=== PATIENT | male | born 1930 | race Caucasian/White ===

== ENCOUNTER 2017-01-20 12:57 | Inpatient (IN) ==
[2017-01-20] MEDS ORDERED: NS 1,000 ML IV ONE (13:15)
[2017-01-20] MEDS: SALINE FLUSH 10ml SYRINGE IVF PRN ×2 (13:56→19:51)
--- NOTE | 2017-01-20 15:04 | Emergency Department Report ---
General Adult HPI - General Chief complaint: Weakness Stated complaint: Edema Time Seen by Provider: 01/20/17 13:00 - History of Present Illness HPI narrative: 86-year-old gentleman brought from [place], by EMS for decreased responsiveness. Patient was seen here 10 days ago for confusion, diagnosed with sepsis and transferred to [place]. He returned home 3 days ago and was admitted [place] 2 days ago. Today when they checked time he had low O2 sats, was not answering questions or following commands. They therefore contacted EMS to bring him to the ED. On entering ED he is very sleepy, takes time answering questions, seems to have difficulty with focus. Family is concerned that he may have had a CVA. 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 This was a very slow growing tumor and did not recur until this last year. Chemotherapy was started, but abandoned has not been given for over 6 weeks. At this time patient denies any pain. He has one daughter at bedside. There is a DO NOT RESUSCITATE order signed by his sister who is not present currently. - Related Data Home Medications Medication Instructions Recorded Confirmed Acyclovir [Zovirax] 800 mg PO DAILY #0 07/20/12 01/20/17 Allopurinol 300 mg PO DAILY #0 07/20/12 01/20/17 Finasteride [Proscar] 5 mg PO DAILY #0 07/20/12 01/20/17 Levothyroxine Sodium [Synthroid] 88 mcg PO DAILY #0 07/20/12 01/20/17 Docusate Sodium [Colace] 100 mg PO BID #0 cap 11/20/15 01/20/17 Sennosides [Senna] 8.6 mg PO BID PRN #0 tab 11/20/15 01/20/17 Acetaminophen 650 mg PO Q4H PRN 01/20/17 01/20/17 Ciprofloxacin [Cipro] 500 mg PO BID 01/20/17 01/20/17 Furosemide [Lasix] 40 mg PO DAILY 01/20/17 01/20/17 Megestrol [Megace] 40 mg PO QID 01/20/17 01/20/17 Metoprolol Tartrate 37.5 mg PO BID 01/20/17 01/20/17 PredniSONE [Deltasone] 20 mg PO DAILY 01/20/17 01/20/17 Tamsulosin [Flomax] 0.8 mg PO DAILY 01/20/17 01/20/17 Allergies Allergy/AdvReac Type Severity Reaction Status Date / Time clindamycin Allergy Unknown Verified 01/20/17 13:34 Penicillins Allergy Unknown Verified 01/20/17 13:34 Review of Systems Limitations: ROS unobtainable due to patient's medical condition [facility] Patient Stated Medical History Diabetes Mellitus Type 2 HX Sepsis Yes History of lymphoma Surgical History: Port Placement, removal of spleen - Social History Smoking status: Never smoker Substance use type: does not use Alcohol intake frequency: does not drink Physical Exam - Limitations Limitations: altered mental status - General General appearance: lethargic - Normal Exams: Head:: Normocephalic without trauma Eyes:: Pupils are PERRLA w/ EOMI, No scleral icterus, irritation, or foreign bodies noted Abdomen:: Bowel sounds positive, soft, non-tender, non-distended, no hepatosplenomegaly, masses or bruits noted - Respiratory Respiratory exam: Present: crackles (mild basis.) - Cardiovascular Cardiovascular exam: Present: tachycardia, irregular rhythm. Absent: systolic murmur, diastolic murmur - Abdominal Exam Abdominal exam: Present: soft, normal bowel sounds. Absent: tenderness, guarding, rebound - Extremities Exam Extremities exam: Present: pedal edema. Absent: joint swelling, calf tenderness - Skin Skin exam: Present: other (significant bruising throughout arms.) - Neurological Exam Neurological exam: Present: oriented X3, CN II-XII intact. Absent: alert Course Vital Signs Temperature 96.3 F L 01/20/17 13:00 Pulse Rate 108 H 01/20/17 13:00 Respiratory Rate 16 01/20/17 13:00 Blood Pressure 124/61 01/20/17 13:00 Pulse Oximetry 97 01/20/17 13:00 Temperature 96.3 F L 01/20/17 13:00 Pulse Rate 138 H 01/20/17 17:17 Respiratory Rate 18 01/20/17 16:09 Blood Pressure 107/56 01/20/17 17:17 Pulse Oximetry 97 01/20/17 17:17 Medical Decision Making - [facility] Narrative Medical decision making narrative: Patient brought in by EMS from [place]. He had limited responsiveness when he arrived. He was very fatigued and would fall asleep when we were trying to speak with him. No family was initially present. Labs were ordered to evaluate the patient white count returned at 15.1 platelet count at 9 INR 1.42 potassium 2.9 by mouth and 40 creatinine 1.2 total bili 2.2 with elevated alkaline phosphatase at 128. We did check creatinine kinase which was 25. Troponin returned at 0.77, elevated. BNP also returned at 23,000. Plasma lactate 3.1. CT abdomen obtained which showed metastatic masses in liver and extensive left periaortic retroperitoneal adenopathy. Also left hydronephrosis with adenopathy encasing renal pelvis and proximal ureter. Moderate pleural effusions are seen in both CT of abdomen and on chest x-ray. Meeting was held with family to discuss this. The patient and family are in agreement that they would like to stay in [place]. They understand that staying in [place] means he would have to go in hospice as we do not have the aggressive abilities that they would at [place] or [facility]. Hospitalist was consulted, however patient is on skilled care at [place] Until midnight. It is more appropriate that patient be admitted for comfort care tonight, we can then consult hospice tomorrow morning. - Lab Data Result diagrams: 01/20/17 14:06 01/20/17 14:06 Lab Results 01/20/17 01/20/17 01/20/17 Range/Units 14:06 14:06 14:06 WBC 15.1 H (4.5-11.0) T/MM3 RBC 3.57 L (4.50-5.90) M/MM3 Hgb 11.4 L (13.5-17.5) GM/DL Hct 33.8 L (41-53) % MCV 94.7 (80-100) UM3 MCH 31.9 (26-34) UUG MCHC 33.7 (31-37) GM/DL RDW Std Deviation 51.6 H (36.9-50.2) FL Plt Count 9 L* D (130-400) T/MM3 MPV Not performed Immature Gran % (Auto) Not performed Neut % (Auto) Not performed Lymph % (Auto) Not performed Stokes % (Auto) Not performed Eos % (Auto) Not performed Baso % (Auto) Not performed Neut # Not performed Lymph # Not performed Stokes # Not performed Eos # Not performed Baso # Not performed Abs Immat Gran (auto) Not performed Neutrophils % (Manual) 76.0 H (33-66) % Band Neutrophils % 13.0 H (0-6) % Lymphocytes % (Manual) 4.0 L (23-45) % Monocytes % (Manual) 6.0 (0-9.0) % Eosinophils % (Manual) 1.0 (0-4) % Neutrophils # (Manual) 11.5 H (1.8-7.7) T/MM3 Band Neutrophils # 2.0 T/MM3 Lymphocytes # (Manual) 0.6 L (1-4.8) T/MM3 Monocytes # (Manual) 0.9 H (0-0.8) T/MM3 Eosinophils # (Manual) 0.2 (0-0.5) T/MM3 Nucleated RBCs 1 Poikilocytosis 2+ Anisocytosis 2+ Target Cells 1+ Hui Cells 2+ Schistocytes 1+ RBC Morph Comment Abnormal INR 1.42 H (0.99-1.21) Turbidity < 20 (0-20) Sodium 140 (134-144) MEQ/L Potassium 2.9 L* (3.6-5) MEQ/L Chloride 106 (98-107) MEQ/L Carbon Dioxide 25 (22-30) MEQ/L Anion Gap 9 (5-15) MEQ/L BUN 40.0 H (9-20) MG/DL Creatinine 1.2 (0.8-1.5) MG/DL GFR Calculation 58 BUN/Creatinine Ratio 33 H (6-26) RATIO Glucose 126 H (75-110) MG/DL Calculated Osmolality 281 H (261-280) MOSM/KG Calcium 11.5 H (8.4-10.2) MG/DL Total Bilirubin 2.20 H (0.20-1.30) MG/DL Icterus Index < 2 (0-7) AST 30 (17-59) U/L ALT 31 (21-72) U/L Alkaline Phosphatase 128 H (38-126) U/L Creatine Kinase 25 L (55-170) U/L Troponin I 0.787 H (0-0.12) ng/ml B-Natriuretic Peptide 89538 H (0-175) pg/mL Total Protein 4.6 L (6.3-8.2) G/DL Albumin 2.4 L (3.5-5.0) G/DL Globulin 2.2 L (2.4-3.6) G/DL Albumin/Globulin Ratio 1.1 (1.1-2.2) RATIO Plasma Lactate 3.1 H (0.6-2.2) MMOL/L Procalcitonin NG/ML TSH 3.44 (0.47-4.68) MIU/L Specimen Hemolysis < 15 (0-25) Ur Collection Type Urine Color (YELLOW) Urine Clarity Urine pH (5.0-8.0) Ur Specific [place] (1.015-1.025) Urine Protein (NEGATIVE) Urine Glucose (UA) (NEGATIVE) Urine Ketones (NEGATIVE) Urine Occult Blood (NEGATIVE) Urine Nitrate (NEGATIVE) Urine Bilirubin (NEGATIVE) Urine Urobilinogen (NORMAL) EU/DL Ur Leukocyte Esterase (NEGATIVE) Urinalysis Comment 01/20/17 01/20/17 01/20/17 Range/Units 14:06 14:41 17:49 WBC (4.5-11.0) T/MM3 RBC (4.50-5.90) M/MM3 Hgb (13.5-17.5) GM/DL Hct (41-53) % MCV (80-100) UM3 MCH (26-34) UUG MCHC (31-37) GM/DL RDW Std Deviation (36.9-50.2) FL Plt Count (130-400) T/MM3 MPV Immature Gran % (Auto) Neut % (Auto) Lymph % (Auto) Stokes % (Auto) Eos % (Auto) Baso % (Auto) Neut # Lymph # Stokes # Eos # Baso # Abs Immat Gran (auto) Neutrophils % (Manual) (33-66) % Band Neutrophils % (0-6) % Lymphocytes % (Manual) (23-45) % Monocytes % (Manual) (0-9.0) % Eosinophils % (Manual) (0-4) % Neutrophils # (Manual) (1.8-7.7) T/MM3 Band Neutrophils # T/MM3 Lymphocytes # (Manual) (1-4.8) T/MM3 Monocytes # (Manual) (0-0.8) T/MM3 Eosinophils # (Manual) (0-0.5) T/MM3 Nucleated RBCs Poikilocytosis Anisocytosis Target Cells Hui Cells Schistocytes RBC Morph Comment INR (0.99-1.21) Turbidity (0-20) Sodium (134-144) MEQ/L Potassium (3.6-5) MEQ/L Chloride (98-107) MEQ/L Carbon Dioxide (22-30) MEQ/L Anion Gap (5-15) MEQ/L BUN (9-20) MG/DL Creatinine (0.8-1.5) MG/DL GFR Calculation BUN/Creatinine Ratio (6-26) RATIO Glucose (75-110) MG/DL Calculated Osmolality (261-280) MOSM/KG Calcium (8.4-10.2) MG/DL Total Bilirubin (0.20-1.30) MG/DL Icterus Index (0-7) AST (17-59) U/L ALT (21-72) U/L Alkaline Phosphatase (38-126) U/L Creatine Kinase (55-170) U/L Troponin I (0-0.12) ng/ml B-Natriuretic Peptide (0-175) pg/mL Total Protein (6.3-8.2) G/DL Albumin (3.5-5.0) G/DL Globulin (2.4-3.6) G/DL Albumin/Globulin Ratio (1.1-2.2) RATIO Plasma Lactate 2.1 (0.6-2.2) MMOL/L Procalcitonin 1.44 NG/ML TSH (0.47-4.68) MIU/L Specimen Hemolysis (0-25) Ur Collection Type Urine, clean catch Urine Color Yellow (YELLOW) Urine Clarity Clear Urine pH 5.5 (5.0-8.0) Ur Specific [place] 1.020 (1.015-1.025) Urine Protein Negative (NEGATIVE) Urine Glucose (UA) Negative (NEGATIVE) Urine Ketones Negative (NEGATIVE) Urine Occult Blood Trace-intact (NEGATIVE) Urine Nitrate Negative (NEGATIVE) Urine Bilirubin Negative (NEGATIVE) Urine Urobilinogen 0.2 (NORMAL) EU/DL Ur Leukocyte Esterase Negative (NEGATIVE) Urinalysis Comment Microscopic not ind. Disposition Clinical Impression: Multisystem organ failure, Congestive heart failure, Thrombocytopenia, Lymphoma Disposition: 51 To Hospice [facility] Facility Condition: Stable Prescriptions: No Action Finasteride [Proscar] 5 mg PO DAILY #0 Allopurinol 300 mg PO DAILY #0 Levothyroxine Sodium [Synthroid] 88 mcg PO DAILY #0 Docusate Sodium [Colace] 100 mg PO BID #0 cap Sennosides [Senna] 8.6 mg PO BID PRN #0 tab PRN Reason: CONSTIPATION Ciprofloxacin [Cipro] 500 mg PO BID Tamsulosin [Flomax] 0.8 mg PO DAILY PredniSONE [Deltasone] 20 mg PO DAILY Metoprolol Tartrate 37.5 mg PO BID Acetaminophen 650 mg PO Q4H PRN PRN Reason: Pain Acyclovir [Zovirax] 800 mg PO DAILY #0 Furosemide [Lasix] 40 mg PO DAILY Megestrol [Megace] 40 mg PO QID Referrals: Joseph Benoit MD [Family Provider] - Time of Disposition: 17:57 - Seen By: physician
[2017-01-20] MEDS ORDERED: IODIXANOL 320mg/ml 100ml INJECTION IV ONE (15:24)
[2017-01-20] MEDS ORDERED: SALINE FLUSH 10ml SYRINGE ONE (15:25)
[2017-01-20] MEDS ORDERED: NS 100 ML ONE (15:25)
[2017-01-20] MEDS ORDERED: LEVOFLOXACIN PB 750 MG/150 ML BAG IV SCH (16:15)
--- NOTE | 2017-01-20 16:57 | CT Scan Report ---
Indication: confusion CT head/brain wo con: Comparison: None Technique: Nonenhanced axial imaging with brain and bone window evaluation with dose reduction imaging technology Findings: Patient shows mild atrophic changes with no acute intracranial findings such as hemorrhage, midline shift or mass. Patient shows no obvious acute vascular insult. Mild deep white matter changes are suggested. Bone window evaluation shows no acute bony findings. Visualized sinuses and mastoids are unremarkable. Impression: 1. Patient showed no acute intracranial findings with just mild age compatible atrophic change and deep white matter change. 2. Findings were communicated to ordering clinician by the V rad service on a callback basis. .
--- NOTE | 2017-01-20 16:59 | XRay Report ---
Indication: weakness XR chest 2V: Comparison: 01/09/2017 Technique: 2 view chest Findings: Patient shows heart size is similar to the previous study. There is increased density in both lung bases some slightly more to the right. This leads to increased density perhaps best seen in the posterior pulmonary gather in the lateral projection. A subtle density in the right upper lobe has not changed appreciably since previous exam. The port has been removed since previous exam. Impression: 1. Since previous examination more prominent density in the lung bases best seen in the posterior pulmonary gather. Follow-up after medical treatment suggested. 2. Heart and central vascularity seems similar to previous study. 3. No change in the small nodule in the right upper lobe .
--- NOTE | 2017-01-20 17:14 | CT Scan Report ---
Indication: fuo, elevated bili CT abdomen pelvis w con: Comparison: Chest radiograph earlier in the day Technique: Patient is scanned from above the diaphragm to below the pubic symphysis after 100 cc Visipaque 320 intravenous contrast is used with dose reduction imaging technology and reformatted sagittal and coronal planes. Findings: Patient shows bilateral pleural effusions and bibasilar atelectatic changes. Heart size is not significantly enlarged. Patient shows widespread probable metastatic disease throughout the liver. Multiple lesions are appreciated involving both right and left lobe. These measure in size from less than 1 mm to cover larger lesions measuring just under 4 cm. Gallbladder shows questionable mild thickening of the wall but no obvious stones were seen. Patient shows a mass density located between the aorta and no left kidney measuring over 9 cm x 6.6 cm. This seems to potentially involve the left kidney renal vein. Left kidney is abnormal in appearance and enlarged with poor excretion the contrast. It kidney shows a small 1 cm cyst but is otherwise unremarkable. Spleen is evidently small. Pancreas seems grossly normal for see the left adrenal gland because of the mass density present to been could not exclude that the adrenal is involved. The left-sided lesion extends along the psoas margin down to just above the iliac crest. Patient shows a distended bladder containing air. Moderate amount of stool is identified in the rectal vault. Reformatted images of the spine showed no marked fractures with moderate degenerative disc changes. Impression: 1. Widespread metastatic disease throughout the liver. 2. Sizable mass in the left mid abdomen. I am uncertain if this represents adenopathy, an enlarged adrenal gland which has extended into involve the left kidney or a lesion in the left kidney that has extended outward to involve the adrenal and retroperitoneal structures. 3. Biopsy may be worthwhile for further evaluation and cytology. .
[2017-01-20] MEDS ORDERED: Hyoscyamine 0.125 MG SL tab SL PRN (18:35)
[2017-01-20] MEDS: MORPHINE SULFATE 10mg/0.5ml ORAL LIQ PO SCH (19:02)
--- NOTE | 2017-01-20 20:00 | History & Physical Report ---
History of Present Illness Date: 01/20/17 Chief complaint: weakness HPI: Informant is patient's records and patient's daughter Hope Chief complaint:weakness 86-year-old gentleman brought from [place], by EMS for decreased responsiveness. Patient was evaluated 10 days ago for confusion, diagnosed with sepsis and transferred to [place]. He returned home 3 days ago and was admitted [place] 2 days ago. Today when they checked time he had low O2 sats, was not answering questions or following commands. They therefore contacted EMS to bring him to the ED. On entering ED he is very sleepy, takes time answering questions, seems to have difficulty with focus. Family is concerned that he may have had a CVA. 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 This was a very slow growing tumor and did not recur until this last year. Chemotherapy was started, but abandoned has not been given for over 6 weeks. At this time patient denies any pain. He has one daughter at bedside. There is a DO NOT RESUSCITATE order signed by his sister who is not present currently. During the patient's emergency department visit, it was decided rather than transferring the patient to [place] for more aggressive therapy that the patient wanted to stay in [place]. The daughter expresses some concerns about the ambulance ride to and from [place]. Apparently when the patient left [facility] he was doing well and was responsive, when they saw him in [place] he was lethargic and much like he is today. It is unclear to them what events may have taken place during that time, but they are concerned with any further transfers. The daughter is aware that he may need inpatient hospice in [place] tomorrow. Jana from [facility] hospice did meet with the family in the emergency department this afternoon. Arrangements have been made for the patient to be admitted here overnight for comfort care. She will meet with the family at 10: 00 in the morning to assess his needs further. Review of Systems ROS unobtainable: other (medical condition) [facility] Surgical History: Port Placement, removal of spleen - Social History Smoking status: Never smoker Current residence: [facility]isted [facility] Medications Home Medications Medication Instructions Recorded Confirmed Type Acyclovir [Zovirax] 800 mg PO DAILY #0 07/20/12 01/20/17 History Allopurinol 300 mg PO DAILY #0 07/20/12 01/20/17 History Finasteride [Proscar] 5 mg PO DAILY #0 07/20/12 01/20/17 History Levothyroxine Sodium [Synthroid] 88 mcg PO DAILY #0 07/20/12 01/20/17 History Docusate Sodium [Colace] 100 mg PO BID #0 cap 11/20/15 01/20/17 History Sennosides [Senna] 8.6 mg PO BID PRN #0 tab 11/20/15 01/20/17 History Acetaminophen 650 mg PO Q4H PRN 01/20/17 01/20/17 History Ciprofloxacin [Cipro] 500 mg PO BID 01/20/17 01/20/17 History Furosemide [Lasix] 40 mg PO DAILY 01/20/17 01/20/17 History Megestrol [Megace] 40 mg PO QID 01/20/17 01/20/17 History Metoprolol Tartrate 37.5 mg PO BID 01/20/17 01/20/17 History PredniSONE [Deltasone] 20 mg PO DAILY 01/20/17 01/20/17 History Tamsulosin [Flomax] 0.8 mg PO DAILY 01/20/17 01/20/17 History Allergies Allergy/AdvReac Type Severity Reaction Status Date / Time clindamycin Allergy Unknown Verified 01/20/17 13:34 Penicillins Allergy Unknown Verified 01/20/17 13:34 Exam Vital Signs: Temperature 96.3 F L 01/20/17 19:29 Pulse Rate 140 H 01/20/17 19:29 Respiratory Rate 28 H 01/20/17 19:29 Blood Pressure 118/73 01/20/17 19:29 Pulse Oximetry 98 01/20/17 19:29 Oxygen Delivery Method Nasal Cannula Oxygen Flow Rate 2 Height: 6 ft 1 in Weight: 172 lb 2.896 oz - Additional findings Additional findings: In general, the patient is slow to respond and nods his head and says yes to most questions. He is able to identify his children by name. In no respiratory distress. HEENT: Head is atraumatic, normocephalic, no conjunctival petechiae, no oral thrush, mucous membranes are moist and pink. Lungs: He has crackles bilaterally CV: Tachycardia irregularly irregular Abdomen: Soft, nontender, bowel sounds are present, there is no guarding no rebound. Extremities: 4+ edema. Skin: Warm and dry no sign of rash Results - Labs CBC & Chem 7: 01/20/17 14:06 01/20/17 14:06 Assessment and Plan (1) Multisystem organ failure Current visit: Yes Status: Acute (2) Congestive heart failure Current visit: Yes Status: Acute (3) Thrombocytopenia Current visit: Yes Status: Acute (4) Lymphoma Current visit: Yes Status: Acute Resuscitation Status: Do Not Resuscitate Assessment and Plan: At this time the patient is admitted for comfort care. She will be evaluated for inpatient hospice in the morning. Please see orders. - Time spent with patient 25 - 35 minutes Coordination of Care: >50% of visit spent providing counseling/coordination of care Sepsis Assessment - Evaluation Sepsis screening result: Severe Sepsis Risk Hospital Course Summary Disclaimer: The visit summary below is not to be considered part of the above Progress Note.
[2017-01-20 20:21] VITALS: BMI 24.5
[2017-01-20] MEDS: LORazepam INTENSOL 1mg/0.5ml ORAL LIQUID PO PRN (21:58)
[2017-01-21] MEDS: MORPHINE SULFATE 10mg/0.5ml ORAL LIQ PO SCH ×4 (00:43→17:54)
[2017-01-21] MEDS: LORazepam INTENSOL 1mg/0.5ml ORAL LIQUID PO PRN ×2 (04:31→15:49)
[2017-01-21] MEDS: SALINE FLUSH 10ml SYRINGE IVF PRN ×2 (06:11→10:58)
[2017-01-21] MEDS ORDERED: DiphenhydrAMINE 50 MG/ML INJECTION IVP PRN (10:46)
--- NOTE | 2017-01-21 12:15 | Progress Note ---
Subjective: Family is at bedside. The patient is sleeping quietly after receiving Benadryl Objective Vital signs: Temperature 96.2 F L 01/21/17 00:45 Pulse Rate 123 H 01/21/17 08:00 Respiratory Rate 12 01/21/17 08:00 Blood Pressure 115/61 01/21/17 08:00 Pulse Oximetry 98 01/21/17 08:00 Oxygen Delivery Method Room Air Oxygen Flow Rate 2 Height: 5 ft 10 in Weight: 170 lb 13.732 oz Body Mass Index: 24.5 - Additional findings Additional findings: In general, the patient is resting quietly HEENT: Head is atraumatic, normocephalic, Lungs:occ crackles and rhonchi CV: Regular rate and rhythm without murmur Abdomen: Soft, nontender, bowel sounds are present, there is no guarding no rebound. Extremities: 4+edema. Skin: Warm and dry no sign of rash Results - Labs CBC & Chem 7: 01/20/17 14:06 01/20/17 14:06 Assessment and Plan (1) Multisystem organ failure Current visit: Yes Status: Acute (2) Congestive heart failure Current visit: Yes Status: Acute (3) Thrombocytopenia Current visit: Yes Status: Acute (4) Lymphoma Current visit: Yes Status: Acute Assessment and Plan: The patient is resting quietly with apneic episodes lasting up to 45 seconds. The family is at bedside awaiting the arrival his brother from [place]. Patient just received 12.5 mg of IV Benadryl secondary to discomfort. After the brother arrives, the family will discuss with nursing about increasing his pain medications. On the hospice nurse is at the bedside currently. Will keep the patient on comfort care status here in [place]. Sepsis Assessment - Evaluation Sepsis screening result: Severe Sepsis Risk Hospital Course Summary Disclaimer: The visit summary below is not to be considered part of the above Progress Note.
[2017-01-21] MEDS ORDERED: Hyoscyamine 0.125 MG SL tab SL PRN (13:30)
[2017-01-21 15:28] VITALS: BP 100/56
[2017-01-21] MEDS: MORPHINE SULFATE 10mg/0.5ml ORAL LIQ SL PRN ×2 (17:31→20:50)
[2017-01-22] MEDS: MORPHINE SULFATE 10mg/0.5ml ORAL LIQ PO SCH ×4 (00:53→18:37)
[2017-01-22] MEDS: SALINE FLUSH 10ml SYRINGE IVF PRN ×2 (00:55→07:07)
[2017-01-22 01:20] VITALS: RESP 22
[2017-01-22] MEDS: LORazepam INTENSOL 1mg/0.5ml ORAL LIQUID PO PRN (06:15)
[2017-01-22] MEDS: MORPHINE SULFATE 10mg/0.5ml ORAL LIQ SL PRN ×6 (08:03→23:08)
--- NOTE | 2017-01-22 11:41 | Progress Note ---
Subjective: Pt lethargic - daughter and hospice spiritual care coordinator at bedside. Objective Vital signs: Temperature 97.3 F 01/22/17 07:35 Pulse Rate 138 H 01/22/17 07:35 Respiratory Rate 22 01/22/17 07:35 Blood Pressure 100/56 01/21/17 15:26 Pulse Oximetry 93 01/22/17 07:35 Oxygen Delivery Method Room Air Oxygen Flow Rate Height: 5 ft 10 in Weight: 170 lb 13.732 oz Body Mass Index: 24.5 - Additional findings Additional findings: In general, the patient is lethargic with agonal breathing HEENT: Head is atraumatic, normocephalic, mucous membranes are dry Lungs: Occasional rhonchi CV: Tachycardia Abdomen: Soft, nontender, bowel sounds are present Extremities: 4+ edema. Skin: no sign of rash Results - Labs CBC & Chem 7: 01/20/17 14:06 01/20/17 14:06 Assessment and Plan (1) Multisystem organ failure Current visit: Yes Status: Acute (2) Congestive heart failure Current visit: Yes Status: Acute (3) Thrombocytopenia Current visit: Yes Status: Acute (4) Lymphoma Current visit: Yes Status: Acute Assessment and Plan: The patient is sedated and unresponsive per family with agonal breathing and apneic episodes. Will continue comfort care and IV pain management as needed. Appreciate hospice 's help. Sepsis Assessment - Evaluation Sepsis screening result: Severe Sepsis Risk Hospital Course Summary Disclaimer: The visit summary below is not to be considered part of the above Progress Note. Hospital Course: 01/21/17 The patient is resting quietly with apneic episodes lasting up to 45 seconds. The family is at bedside awaiting the arrival his brother from [place]. Patient just received 12.5 mg of IV Benadryl secondary to discomfort. After the brother arrives, the family will discuss with nursing about increasing his pain medications. On the hospice nurse is at the bedside currently. Will keep the patient on comfort care status here in [place]. 01/22/17 11:48 The patient is sedated and unresponsive per family with agonal breathing and apneic episodes. Will continue comfort care and IV pain management as needed. Appreciate hospice 's help.
[2017-01-22 23:45] VITALS: PULSE 111; TEMP 96.9; O2SAT 79
--- NOTE | 2017-01-23 10:44 | Death Note ---
Providers - Provider Admitting clinician: Tiny Jordan Consults: 01/20/17 21:33 Dietary Consult [CONS] Routine Comment: Reason For Exam: Diagnosis - Contributing Factors (1) Multisystem organ failure Status: Acute (2) Congestive heart failure Status: Acute (3) Thrombocytopenia Status: Acute (4) Lymphoma Status: Acute Summary - Date and Time Date of admission: 01/20/17 18:29 Date of : 01/23/17 Time of : 01:53 - Summary Details: Mr. Ro is an 86-year-old white male with metastatic lymphoma who is admitted for comfort care. [facility] inpatient hospice was consulted and involved in the patient's last few days. He with his family at his side - Additional Data Attending physician: Tiny Jordan MD
== END 2017-01-23 00:15 | disposition expired | DRG 951 ==
LOC: MED 12:57 → ED 12:57 → MED 19:26
PROVIDERS: ADMIT Internal Medicine Infectious Disease; ATTEND Internal Medicine Infectious Disease